=== PATIENT | female | born 1945 | race Caucasian/White ===

== ENCOUNTER 2020-02-28 02:41 | Emergency (ER) | payer MEDICARE, BC ==
[2020-02-28] MEDS ORDERED: Albuterol/Ipratropium 3.0-0.5 MG/3 ML Neb Soln NEB ONE ×2 (03:02→04:32)
--- NOTE | 2020-02-28 03:33 | EDM.PDOC ---
ED HPI GENERAL MEDICAL PROBLEM - General Chief Complaint: Neurological Problem Stated Complaint: [facility] Time Seen by Provider: 02/28/20 02:41 - History of Present Illness INITIAL COMMENTS - FREE TEXT/NARRATIVE: 74-year-old female presents the emergency room brought in by EMS from home after having a apparent CVA-like episode. The patient approximately 215 this morning was very anxious awoke her daughter stating she could not breathe. Her daughter rushed out of bed took the patient back to her room and as she was trying to put her to bed and get a nebulizer ready noticed that her mom, the patient, was starting to drop the daughter dropped the nebulizer unit to assist her mom to the floor. At that point the patient was unresponsive. The daughter was unsure if mom was breathing or not and started bystander people CPR. 911 was called and arrived shortly thereafter and found the patient breathing spontaneously and had a pulse. She was assisted with bag mouth ventilation and brought to the emergency room. On my admission initial evaluation the patient would open her eyes on command however would not speak and she had marked weakness on the right side. The patient was recently discharged from [facility] in [place] after having some sort of a CVA on the December. She was treated for Plavix for 3 weeks and then changed to aspirin. She followed up with neurology yesterday and was advised to stop the aspirin restart Plavix today. According to the daughter the patient has not had any Plavix today and has been off it since it was stopped at the 3-week date following the first event. - Related Data Allergies Allergy/AdvReac Type Severity Reaction Status Date / Time No Known Allergies Allergy Verified 02/28/20 04:27 Home Meds: Home Meds Albuterol [Proventil HFA] 1 puff INH ASDIRECTED PRN 02/28/20 [History] Albuterol/Ipratropium [DuoNeb 3.0-0.5 MG/3 ML] 3 ml INH Q4HR PRN 02/28/20 [History] Clopidogrel [Plavix] 75 mg PO DAILY 02/28/20 [History] Famotidine 40 mg PO DAILY 02/28/20 [History] Glycopyrrolate/Formoterol Fum [Bevespi Aerosphere Inhaler] 2 puff INH BID 02/28/20 [History] Levothyroxine 125 mcg PO ACBREAKFAST 02/28/20 [History] Losartan Potassium 25 mg PO DAILY 02/28/20 [History] Rosuvastatin Calcium 40 mg PO DAILY 02/28/20 [History] Sertraline [Zoloft] 25 mg PO DAILY 02/28/20 [History] carvediloL [Carvedilol] 6.25 mg PO DAILY 02/28/20 [History] Social & Family History - Tobacco Use Tobacco Use Status *Q: Unknown Ever Used Tobacco ED ROS GENERAL - Review of Systems Review Of Systems: Unable To Obtain Reason Not Obtained: Patient's overall status makes getting a review of system impract ED EXAM, NEURO - Physical Exam Exam: See Below Exam Limited By: Other (Appears awake and tries to do what she is asked to do) General Appearance: Alert, Mild Distress, Other (Initially when she came in she was very hypertensive and tachypneic both of these improved with a little bit of time) Eye Exam: Bilateral Eye: Normal Inspection, PERRL Ears: Normal External Exam, Normal Canal, Hearing Grossly Normal, Normal TMs Nose: Normal Inspection, Normal Mucosa, No Blood Throat/Mouth: Normal Inspection, Normal Lips, Normal Gums, Normal Oropharynx, Normal Voice, No Airway Compromise Head Exam: Atraumatic, Normocephalic Neck: Normal Inspection, Supple, Non-Tender, Full Range of Motion. No: Lymphadenopathy (L), Lymphadenopathy (R) Respiratory/Chest: No Respiratory Distress, Lungs Clear, Decreased Breath Sounds Cardiovascular: Regular Rate, Rhythm, No Edema, No Murmur GI/Abdominal: Normal Bowel Sounds, Soft, Non-Tender Neurological: Other (Usually the patient had significant weakness on the right side after she been here about 15 minutes she would do a little bit with her pinky and to a lesser extent with her ring finger but would not do anything with her right leg) Back Exam: Normal Inspection. No: CVA Tenderness (L), CVA Tenderness (R) Skin Exam: Warm, Dry, Intact #1 Interpretation EKG Date: 02/28/20 Rhythm: NSR Neeses: Normal P-Wave: Present QRS: Normal ST-T: Other (LV type strain pattern noted in V4 through V6) QT: Normal Course - Vital Signs Last Recorded V/S: Last Vital Signs Temp 35.9 C L 02/28/20 03:05 Pulse 80 02/28/20 03:05 Resp 32 H 02/28/20 03:05 BP 219/110 H 02/28/20 03:05 Pulse Ox 98 02/28/20 04:32 - Orders/Labs/Meds Orders: Active Orders 24 hr Category Date Time Status EKG 12 Lead [EKG Documentation Completion] [RC] STAT Care 02/28/20 03:04 Active RT Aerosol Therapy [RC] ASDIRECTED Care 02/28/20 03:02 Active RT Aerosol Therapy [RC] ASDIRECTED Care 02/28/20 04:32 Active RT BiPAP/CPAP [RC] ASDIRECTED Care 02/28/20 03:14 Active Chest 1V Frontal [CR] Stat Exams 02/28/20 03:54 Taken Head wo Cont [CT] Stat Exams 02/28/20 02:46 Taken Labs: Laboratory Tests 02/28/20 02/28/20 02/28/20 Range/Units 02:47 02:47 02:47 WBC 11.41 H (3.98-10.04) K/mm3 RBC 3.63 L (3.98-5.22) M/mm3 Hgb 11.4 (11.2-15.7) gm/dl Hct 34.8 (34.1-44.9) % MCV 95.9 H (79.4-94.8) fl MCH 31.4 (25.6-32.2) pg MCHC 32.8 (32.2-35.5) g/dl RDW Std Deviation 49.8 H (36.4-46.3) fL Plt Count 303 (182-369) K/mm3 MPV 9.6 (9.4-12.3) fl Neut % (Auto) 56.6 (34.0-71.1) % Lymph % (Auto) 29.3 (19.3-51.7) % Keith % (Auto) 6.2 (4.7-12.5) % Eos % (Auto) 6.7 H (0.7-5.8) Baso % (Auto) 0.5 (0.1-1.2) % Neut # (Auto) 6.46 H (1.56-6.13) K/mm3 Lymph # (Auto) 3.34 (1.18-3.74) K/mm3 Keith # (Auto) 0.71 H (0.24-0.36) K/mm3 Eos # (Auto) 0.76 H (0.04-0.36) K/mm3 Baso # (Auto) 0.06 (0.01-0.08) K/mm3 Manual Slide Review Abnormal smear PT 11.2 (9.7-11.7) SECONDS INR 1.05 APTT 22 (22-31) SECONDS Puncture Site ABG pH (7.35-7.45) ABG pCO2 (35.0-45.0) mmHg ABG pO2 (80.0-100.0) mmHg ABG HCO3 (22.0-26.0) meq/L ABG O2 Saturation (96.0-97.0) % ABG Base Excess (-2-2.0) A-a Gradient mmHg O2 Delivery Device Oxygen Flow Rate FiO2 (21.00-100.00) % Sodium 142 (136-145) mEq/L Potassium 4.1 (3.5-5.1) mEq/L Chloride 105 (98-107) mEq/L Carbon Dioxide 22 (21-32) mEq/L Anion Gap 19.1 H (5-15) BUN 29 H (7-18) mg/dL Creatinine 1.5 H (0.55-1.02) mg/dL Est Cr Clr Drug Dosing TNP Estimated GFR (MDRD) 34 (>60) mL/min BUN/Creatinine Ratio 19.3 H (14-18) Glucose 194 H (83-115) mg/dL Calcium 8.9 (8.5-10.1) mg/dL Total Bilirubin 0.3 (0.2-1.0) mg/dL AST 96 H (15-37) U/L ALT 65 H (14-59) U/L Alkaline Phosphatase 84 (46-116) U/L Troponin I < 0.017 (0.00-0.056) ng/mL Total Protein 7.3 (6.4-8.2) g/dl Albumin 3.6 (3.4-5.0) g/dl Globulin 3.7 gm/dL Albumin/Globulin Ratio 1.0 (1-2) Urine Color (Yellow) Urine Appearance (Clear) Urine pH (5.0-8.0) Ur Specific [place] (1.005-1.030) Urine Protein (Negative) Urine Glucose (UA) (Negative) Urine Ketones (Negative) Urine Occult Blood (Negative) Urine Nitrite (Negative) Urine Bilirubin (Negative) Urine Urobilinogen (0.2-1.0) Ur Leukocyte Esterase (Negative) U Hyaline Cast (Auto) (0-5) /lpf Urine RBC (0-5) /hpf Urine WBC (0-5) /hpf Ur Transition Epith Cell (0-5) Urine Bacteria (FEW) /hpf Fine Granular Casts (0-5) /lpf Urine Mucus (FEW) /hpf SARS-CoV-2 RNA (JOSE) (NEGATIVE) 02/28/20 02/28/20 02/28/20 Range/Units 02:47 03:01 03:29 WBC (3.98-10.04) K/mm3 RBC (3.98-5.22) M/mm3 Hgb (11.2-15.7) gm/dl Hct (34.1-44.9) % MCV (79.4-94.8) fl MCH (25.6-32.2) pg MCHC (32.2-35.5) g/dl RDW Std Deviation (36.4-46.3) fL Plt Count (182-369) K/mm3 MPV (9.4-12.3) fl Neut % (Auto) (34.0-71.1) % Lymph % (Auto) (19.3-51.7) % Keith % (Auto) (4.7-12.5) % Eos % (Auto) (0.7-5.8) Baso % (Auto) (0.1-1.2) % Neut # (Auto) (1.56-6.13) K/mm3 Lymph # (Auto) (1.18-3.74) K/mm3 Keith # (Auto) (0.24-0.36) K/mm3 Eos # (Auto) (0.04-0.36) K/mm3 Baso # (Auto) (0.01-0.08) K/mm3 Manual Slide Review PT (9.7-11.7) SECONDS INR APTT (22-31) SECONDS Puncture Site Rt radial ABG pH 7.19 L* (7.35-7.45) ABG pCO2 54.6 H (35.0-45.0) mmHg ABG pO2 306.0 H* (80.0-100.0) mmHg ABG HCO3 20.1 L (22.0-26.0) meq/L ABG O2 Saturation 99.4 H (96.0-97.0) % ABG Base Excess -7.8 L (-2-2.0) A-a Gradient 25 mmHg O2 Delivery Device Simple mask Oxygen Flow Rate 9.0 FiO2 56.00 (21.00-100.00) % Sodium (136-145) mEq/L Potassium (3.5-5.1) mEq/L Chloride (98-107) mEq/L Carbon Dioxide (21-32) mEq/L Anion Gap (5-15) BUN (7-18) mg/dL Creatinine (0.55-1.02) mg/dL Est Cr Clr Drug Dosing Estimated GFR (MDRD) (>60) mL/min BUN/Creatinine Ratio (14-18) Glucose (83-115) mg/dL Calcium (8.5-10.1) mg/dL Total Bilirubin (0.2-1.0) mg/dL AST (15-37) U/L ALT (14-59) U/L Alkaline Phosphatase (46-116) U/L Troponin I (0.00-0.056) ng/mL Total Protein (6.4-8.2) g/dl Albumin (3.4-5.0) g/dl Globulin gm/dL Albumin/Globulin Ratio (1-2) Urine Color Yellow (Yellow) Urine Appearance Clear (Clear) Urine pH 5.5 (5.0-8.0) Ur Specific [place] > or = 1.030 (1.005-1.030) Urine Protein 2+ H (Negative) Urine Glucose (UA) Negative (Negative) Urine Ketones Negative (Negative) Urine Occult Blood Negative (Negative) Urine Nitrite Negative (Negative) Urine Bilirubin Negative (Negative) Urine Urobilinogen 0.2 (0.2-1.0) Ur Leukocyte Esterase Negative (Negative) U Hyaline Cast (Auto) 0-5 (0-5) /lpf Urine RBC 5-10 H (0-5) /hpf Urine WBC 0-5 (0-5) /hpf Ur Transition Epith Cell 0-5 (0-5) Urine Bacteria Few (FEW) /hpf Fine Granular Casts 0-5 (0-5) /lpf Urine Mucus Moderate H (FEW) /hpf SARS-CoV-2 RNA (JOSE) Negative (NEGATIVE) 02/28/20 Range/Units 04:05 WBC (3.98-10.04) K/mm3 RBC (3.98-5.22) M/mm3 Hgb (11.2-15.7) gm/dl Hct (34.1-44.9) % MCV (79.4-94.8) fl MCH (25.6-32.2) pg MCHC (32.2-35.5) g/dl RDW Std Deviation (36.4-46.3) fL Plt Count (182-369) K/mm3 MPV (9.4-12.3) fl Neut % (Auto) (34.0-71.1) % Lymph % (Auto) (19.3-51.7) % Keith % (Auto) (4.7-12.5) % Eos % (Auto) (0.7-5.8) Baso % (Auto) (0.1-1.2) % Neut # (Auto) (1.56-6.13) K/mm3 Lymph # (Auto) (1.18-3.74) K/mm3 Keith # (Auto) (0.24-0.36) K/mm3 Eos # (Auto) (0.04-0.36) K/mm3 Baso # (Auto) (0.01-0.08) K/mm3 Manual Slide Review PT (9.7-11.7) SECONDS INR APTT (22-31) SECONDS Puncture Site Lt radial ABG pH 7.36 (7.35-7.45) ABG pCO2 39.6 (35.0-45.0) mmHg ABG pO2 83.0 (80.0-100.0) mmHg ABG HCO3 21.6 L (22.0-26.0) meq/L ABG O2 Saturation 94.5 L (96.0-97.0) % ABG Base Excess -3.1 L (-2-2.0) A-a Gradient 96 mmHg O2 Delivery Device Cpap Oxygen Flow Rate 3.0 FiO2 32.00 (21.00-100.00) % Sodium (136-145) mEq/L Potassium (3.5-5.1) mEq/L Chloride (98-107) mEq/L Carbon Dioxide (21-32) mEq/L Anion Gap (5-15) BUN (7-18) mg/dL Creatinine (0.55-1.02) mg/dL Est Cr Clr Drug Dosing Estimated GFR (MDRD) (>60) mL/min BUN/Creatinine Ratio (14-18) Glucose (83-115) mg/dL Calcium (8.5-10.1) mg/dL Total Bilirubin (0.2-1.0) mg/dL AST (15-37) U/L ALT (14-59) U/L Alkaline Phosphatase (46-116) U/L Troponin I (0.00-0.056) ng/mL Total Protein (6.4-8.2) g/dl Albumin (3.4-5.0) g/dl Globulin gm/dL Albumin/Globulin Ratio (1-2) Urine Color (Yellow) Urine Appearance (Clear) Urine pH (5.0-8.0) Ur Specific [place] (1.005-1.030) Urine Protein (Negative) Urine Glucose (UA) (Negative) Urine Ketones (Negative) Urine Occult Blood (Negative) Urine Nitrite (Negative) Urine Bilirubin (Negative) Urine Urobilinogen (0.2-1.0) Ur Leukocyte Esterase (Negative) U Hyaline Cast (Auto) (0-5) /lpf Urine RBC (0-5) /hpf Urine WBC (0-5) /hpf Ur Transition Epith Cell (0-5) Urine Bacteria (FEW) /hpf Fine Granular Casts (0-5) /lpf Urine Mucus (FEW) /hpf SARS-CoV-2 RNA (JOSE) (NEGATIVE) Meds: Medications Discontinued Medications Generic Name Dose Route Start Last Admin Trade Name Freq PRN Reason Stop Dose Admin Albuterol/Ipratropium 3 ml 02/28/20 03:02 02/28/20 03:10 Duoneb 3.0-0.5 Mg/3 Ml NEB 02/28/20 03:03 3 ml ONETIME ONE Administration Albuterol/Ipratropium 3 ml 02/28/20 04:32 02/28/20 04:40 Duoneb 3.0-0.5 Mg/3 Ml NEB 02/28/20 04:33 3 ml ONETIME ONE Administration Methylprednisolone Sodium Succinate 125 mg 02/28/20 04:19 02/28/20 04:58 Solu-Medrol IVPUSH 02/28/20 04:20 125 mg ONETIME ONE Administration - Re-Assessments/Exams Free Text/Narrative Re-Assessment/Exam: 02/28/20 04:15 Discussed the patient's case with 1 call at [facility] they have no beds available. I then discussed the patient's case with [facility] in [place] and pending patient's CODE STATUS they have a bed for the patient we are awaiting the test result for this. I was able to talk to Dr. Nelson, neurologist at [facility] in [place] at a 03:40. At that time the patient had improved neurologic status with near normal strength in her right upper extremity and lo wer extremity while I was waiting on hold to talk to the doctor nurses inform me that the patient was talking again. A few minutes ago I did reevaluate the patient and she is talking normally and demonstrates good strength with the right upper extremity it is slightly diminished compared to the left same as noted with the lower extremity much better than it was slightly diminished compared to the left according to the daughter the patient's baseline is she has some fine motor weakness on the right arm and when she gets fatigued will drag her right leg. 02/28/20 05:17 Daughter was able to visit with the patient daughter thinks that patient is at baseline. Patient's COVID came back negative. I did discuss the patient's case with Dr. Lopez at 05: 08 who kindly accepted the patient in transfer. [facility] will be here shortly to transfer the patient. Departure - Departure Time of Disposition: 05:18 Disposition: DC/Tfer to Acute Hospital 02 Clinical Impression: CVA (cerebral vascular accident), Shortness of breath - Discharge Information Referrals: Leticia Rousseau PA-C [Primary Care Provider] - Forms: ED Department Discharge Sepsis Event Note (ED) - Evaluation Sepsis Screening Result: No Definite Risk - Focused Exam Vital Signs: Vital Signs Temp Pulse Resp BP Pulse Ox Pulse Ox 02/28/20 04:32 98 02/28/20 04:18 97 02/28/20 03:10 93 L 02/28/20 03:05 35.9 C L 80 32 H 219/110 H 100 - My Orders Last 24 Hours: My Active Orders 02/28/20 02:46 Head wo Cont [CT] Stat 02/28/20 03:02 RT Aerosol Therapy [RC] ASDIRECTED 02/28/20 03:04 EKG 12 Lead [EKG Documentation Completion] [RC] STAT 02/28/20 03:14 RT BiPAP/CPAP [RC] ASDIRECTED 02/28/20 03:54 Chest 1V Frontal [CR] Stat 02/28/20 04:32 RT Aerosol Therapy [RC] ASDIRECTED - Assessment/Plan Last 24 Hours: My Active Orders 02/28/20 02:46 Head wo Cont [CT] Stat 02/28/20 03:02 RT Aerosol Therapy [RC] ASDIRECTED 02/28/20 03:04 EKG 12 Lead [EKG Documentation Completion] [RC] STAT 02/28/20 03:14 RT BiPAP/CPAP [RC] ASDIRECTED 02/28/20 03:54 Chest 1V Frontal [CR] Stat 02/28/20 04:32 RT Aerosol Therapy [RC] ASDIRECTED
[2020-02-28] MEDS ORDERED: methylPREDNISolone Sodium Succinate 125 MG/2 ML SDV IVPUSH ONE (04:19)
== END 2020-02-28 05:50 ==
LOC: JD.ED 02:41
DX: I62.9 Nontraumatic intracranial hemorrhage, unspecified (principal); Z20.828 Contact with and (suspected) exposure to other viral communicable diseases; Z79.02 Long term (current) use of antithrombotics/antiplatelets; Z79.899 Other long term (current) drug therapy
CPT/HCPCS: 36415; 36600; 70450; 71045; 80053; 81001; 82803; 82962; 84484; 85025; 85610; 85730; 93005; 94640; 94660; 96374; 99285; J2930; U0002; 93010; J7620-GY

== ENCOUNTER 2022-04-22 15:27 | Emergency (ER) | payer MEDICARE, BC ==
[2022-04-22] MEDS ORDERED: Sodium Chloride 0.9% 10 ML Syringe FLUSH PRN ×2 (15:31→15:43)
[2022-04-22] MEDS ORDERED: Iopamidol 755 Mg/ML 100 ML Bottle IVPUSH ONE (15:43)
[2022-04-22] MEDS ORDERED: Sodium Chloride 0.9% 45 ML IV SCH (15:45)
[2022-04-22] MEDS ORDERED: Acetaminophen 325 MG Tab PO ONE (16:23)
== END 2022-04-22 18:40 | disposition home or self-care (01) ==
LOC: JD.ED 15:27
DX: R51.9 Headache, unspecified (principal); R53.1 Weakness; E78.00 Pure hypercholesterolemia, unspecified; I10 Essential (primary) hypertension; J44.9 Chronic obstructive pulmonary disease, unspecified; Z79.02 Long term (current) use of antithrombotics/antiplatelets; Z79.899 Other long term (current) drug therapy
CPT/HCPCS: 36415; 70450; 70496; 70498; 80053; 84484; 85025; 85610; 85730; 93005; 99285; A9270; J3490; Q9967